=== PATIENT | female | born 1990 | race Caucasian/White ===

== ENCOUNTER 2017-10-08 13:17 | Emergency (ER) | payer MEDICAID ==
[2017-10-08 13:35] VITALS: BP 136/79
--- NOTE | 2017-10-08 13:39 | UC ---
Throat Pain/Nasal Gil HPI - HPI Summary HPI Summary: 26 y/o female presents to the urgent care c/o sore throat since 10/06/2017. pt states symptoms worsen today when she developed nausea and vomiting yesterday. She has 1 episode of vomiting yesterday and 2 today. Pain w/ swallowing is 8/ 10. She has taken Dayquill to alleviate symptoms. She has decrease appetite, but has been drinking fluids. Pt denies fever, cough, SOB, chest pain, abdominal pain, diarrhea. LMP: 1 week ago. - History of Current Complaint Chief Complaint: UCRespiratory Stated Complaint: SORE THROAT Time Seen by Provider: 10/08/17 13:37 Hx Obtained From: Patient Hx Last Menstrual Period: 1 wk ago ?: No Onset/Duration: Gradual Onset, Lasting Days - 2 days, Still Present, Worse Since - yesterday Severity: Moderate Pain Intensity: 8 Pain Scale Used: 0-10 Numeric Cough: None Associated Signs & Symptoms: Positive: Dysphagia - Epiglottits Risk Factors Epiglottis Risk Factors: Negative - Allergies/Home Medications Allergies/Adverse Reactions: Allergies Allergy/AdvReac Type Severity Reaction Status Date / Time No Known Allergies Allergy Verified 10/08/17 13:35 PMH/Surg Hx/FS Hx/Imm Hx Previously Healthy: Yes - Pt denies PMHX Other History Of: Negative For: HIV, Hepatitis B, Hepatitis C - Surgical History Surgical History: None - Family History Known Family History: Positive: Hypertension Negative: Cardiac Disease - Social History Occupation: Employed Full-time Lives: With Family Alcohol Use: Occasionally Substance Use Type: None Smoking Status (MU): Former Smoker Type: Pipe Amount Used/How Often: 5 smokes per day Review of Systems Constitutional: Negative Skin: Negative Eyes: Negative ENT: Sore Throat Respiratory: Negative Cardiovascular: Negative Gastrointestinal: Vomiting, Nausea Genitourinary: Negative Motor: Negative Neurovascular: Negative Musculoskeletal: Negative Neurological: Negative Psychological: Negative Is Patient Immunocompromised?: No All Other Systems Reviewed And Are Negative: Yes Physical Exam - Summary Physical Exam Summary: VITAL SIGNS: Reviewed. GENERAL: Patient is a well developed and nourished female who is sitting comfortable in the examining table. Patient is not in any acute respiratory distress. HEAD AND FACE: No signs of trauma. No ecchymosis, hematomas or skull depressions. No sinus tenderness. EYES: PERRLA, EOMI x 2, No injected conjunctiva, no nystagmus. No photophobia. EARS: Hearing grossly intact. Ear canals and tympanic membranes are within normal limits. MOUTH: Positive pharynx with erythema, exudates, palatal petechiae. B/L tonsillar enlargement with exudate. Uvula in midline. NECK: Supple, trachea is midline, Positive anterior cervical lymphadenopathy, no JVD, no carotid bruit, no c-spine tenderness, neck with full ROM. No meningeal signs, no Kernig's or brudzinskis signs. CHEST: Symmetric, no tenderness at palpation LUNGS: Clear to auscultation bilaterally. No wheezing or crackles. CVS: Regular rate and rhythm, S1 and S2 present, no murmurs or gallops appreciated. ABDOMEN: Soft, non-tender. No signs of distention. No rebound no guarding, and no masses palpated. Bowel sounds are normal. EXTREMITIES: FROM in all major joints, no edema, no cyanosis or clubbing. NEURO: Alert and oriented x 3. No acute neurological deficits. Speech is normal and follows commands. SKIN: Dry and warm Triage Information Reviewed: Yes Vital Signs: Initial Vital Signs Temp 99.0 F 10/08/17 13:32 Pulse 95 10/08/17 13:32 Resp 18 10/08/17 13:32 BP 136/79 10/08/17 13:32 Pulse Ox 99 10/08/17 13:32 Throat Pain/Nasal Course/Dx - Course Course Of Treatment: 26 y/o female presents to the urgent care c/o sore throat since 10/06/2017. pt states symptoms worsen today when she developed nausea and vomiting yesterday. She has 1 episode of vomiting yesterday and 2 today. Pain w / swallowing is 8/10. She has taken Dayquill to alleviate symptoms. She has decrease appetite, but has been drinking fluids. Pt denies fever, cough, SOB, chest pain, abdominal pain, diarrhea. LMP: 1 week ago.Hx obtained. Pt w/ pharyngitis on examination. Pt Given Zofran PO at the clinic to alleviate N/V. Pt tolerated well medication. Rapid strep ordered: result: positive. Strep pharyngitis. Pt Rx Amoxicillin PO and Ibuprofen PO for pain and swelling and Zofran PO for N/V. PT Advised on hand washing to avoid spreading. Also advised to rest, increase fluid intake, eat well and avoid strenuous exercise. If symptoms do not improve or worsen advised to return to the urgent care or f/ u with her PCP for further evaluation and treatment. PT understood and agreed w / D/c instructions. - Differential Dx/Diagnosis Differential Diagnosis/HQI/PQRI: Laryngitis, Mononucleosis, Pharyngitis, Sinusitis, Tonsillitis, URI, Other - nausea and vomiting, gastroenteritis Provider Diagnoses: 1- Strep pharyngitis. 2- Nausea and vomiting Discharge - Sign-Out/Discharge Documenting (check all that apply): Patient Departure - D/C home - Discharge Plan Condition: Stable Disposition: HOME Prescriptions: Amoxicillin PO (*) [Amoxicillin 500 MG CAP*] 500 mg PO Q12H #20 cap Ibuprofen TAB* [Motrin TAB* 800 MG] 800 mg PO Q6H PRN #30 tab PRN Reason: Sore Throat Ondansetron ODT TAB* [Zofran 4 MG Odt TAB*] 4 mg PO Q6H PRN #12 tab.odt PRN Reason: Vomiting Patient Education Materials: Strep Throat (ED) Forms: *Work Release Referrals: [facility] [place] [facility] [Outside] - 3 Days Additional Instructions: 1- Please take the full course of the antibiotic to avoid resistance. 2-Please take ibuprofen PO q6-8hrs prn as instructed after meals to alleviate pain and swelling. Increase fluid intake, eat well, rest and avoid strenuous exercise. 3- Please take Zofran PO as directed to alleviate Nausea and vomiting. Please increase fluid intake, eat soft meals, 4-If symptoms do not improve or worsen please return to the urgent care or f/u with your PCP for further evaluation and treatment. - Billing Disposition and Condition Condition: STABLE Disposition: Home
[2017-10-08] MEDS ORDERED: Ondansetron ODT TAB* 4 MG PO ONE (13:51)
== END 2017-10-08 14:32 | disposition home or self-care (01) ==
LOC: UCEAST 13:17
DX: J02.0 Streptococcal pharyngitis (principal); R11.2 Nausea with vomiting, unspecified; Z87.891 Personal history of nicotine dependence
CPT/HCPCS: 87651; 99212; A9270-GY; G0463

== ENCOUNTER 2018-05-15 14:36 | Emergency (ER) | payer MEDICAID, OTHER ==
[2018-05-15 14:56] VITALS: BP 147/105
--- NOTE | 2018-05-15 15:48 | UC ---
Dental HPI - HPI Summary HPI Summary: 37 y/o female presents to the urgent care c/o L lower tooth pain. States had appt to see dentist but insurance ran out. - History of Current Complaint Chief Complaint: UCDentalProblem Stated Complaint: TOOTH PAIN Time Seen by Provider: 05/15/18 15:29 Hx Obtained From: Patient Hx Last Menstrual Period: 05/08/2017 Onset/Duration: Gradual Onset Pain Intensity: 8 - Allergies/Home Medications Allergies/Adverse Reactions: Allergies Allergy/AdvReac Type Severity Reaction Status Date / Time No Known Allergies Allergy Verified 05/15/18 14:52 PMH/Surg Hx/FS Hx/Imm Hx Other History Of: Negative For: HIV, Hepatitis B, Hepatitis C - Surgical History Surgical History: None - Family History Known Family History: Positive: Hypertension Negative: Cardiac Disease - Social History Alcohol Use: Weekly Substance Use Type: None Smoking Status (MU): Former Smoker Type: Pipe Amount Used/How Often: 5 smokes per day Physical Exam Vital Signs: Initial Vital Signs Temp 99.2 F 05/15/18 14:53 Pulse 80 05/15/18 14:53 Resp 18 05/15/18 14:53 BP 147/105 05/15/18 14:53 Pulse Ox 100 05/15/18 14:53 Dental Complaint Course/Dx - Differential Dx/Diagnosis Differential Diagnosis/Dx: Dental Abscess, Fractured Tooth, Odontogenic Pain, Peridontic Disease, Peritonsillar Abcess, Tonsillitis Provider Diagnosis: Dental abscess, Elevated BP without diagnosis of hypertension Discharge - Sign-Out/Discharge Documenting (check all that apply): Patient Departure - d/c home All imaging exams completed and their final reports reviewed: No Studies - Discharge Plan Condition: Stable Disposition: HOME Prescriptions: Clindamycin Cap(NF) [Clindamycin Cap 300 mg Cap(NF)] 300 mg PO TID #30 cap Ibuprofen TAB* [Motrin TAB* 800 MG] 800 mg PO Q6H PRN #30 tab PRN Reason: Pain Lidocaine 2% VISCOUS* [Xylocaine 2% Viscous*] 15 ml SWISH SPIT Q6H PRN #1 btl PRN Reason: dental pain Patient Education Materials: Dental Abscess (ED), Low-Sodium Diet (ED) Referrals: [facility] [place] [facility] [Outside] - 2 Days Additional Instructions: 1-Please take full course of antibiotic to avoid resistance. 2- Take Ibuprofen PO q6-8hrs as instructed after meals to alleviate pain and swelling. Take also Viscous Lidocaine to alleviate symptoms 3- F/u with your Dentist or Dental List provided as soon as possible for further treatment. 4- If symptoms do not improve or worsen please return to the urgent care or f/u with your PCP in 3 days for further evaluation and treatment 5- Your BP is elevated today. please decrease salt in your diet, monitor BP and if it continues to be elevated please f/u with your PCP for further management. - Billing Disposition and Condition Condition: STABLE Disposition: Home
[2018-05-15] MEDS ORDERED: Lidocaine 2% VISCOUS* 15 ML UDC SWISH SPIT ONE (16:07)
== END 2018-05-15 16:25 | disposition home or self-care (01) ==
LOC: UCEAST 14:36
DX: K04.7 Periapical abscess without sinus (principal); R03.0 Elevated blood-pressure reading, without diagnosis of hypertension; Z87.891 Personal history of nicotine dependence
CPT/HCPCS: 99212; G0463

== ENCOUNTER 2018-06-20 14:02 | Emergency (ER) | payer BC, OTHER ==
[2018-06-20 14:22] VITALS: BP 138/88
--- NOTE | 2018-06-20 15:55 | ED ---
Allergic Reaction/Systemic - HPI Summary HPI Summary: 27 yo WF c/o rash in B/L axilla after a episode of sweating 1 week ago and now very itchy and spreading in upper back and B/L arms, Denies recent h/o new perfumes, detergents, soaps or foods, wore some new bras but stopped wearing them. Alos c/p sore throat x few days, exposed to sick contacts with strep and want to check if she has strep. - History of Current Complaint Chief Complaint: UCRespiratory Time Seen by Provider: 06/20/18 14:44 Hx Obtained From: Patient Hx Last Menstrual Period: 05/2018 Onset/Duration: Sudden Onset, Started days ago Timing: Lasting Days Severity Initially: Moderate Severity Currently: Moderate Pain Intensity: 3 - Allergies/Home Medications Allergies/Adverse Reactions: Allergies Allergy/AdvReac Type Severity Reaction Status Date / Time No Known Allergies Allergy Verified 06/20/18 14:22 Home Medications: Home Medications Dm/PE/Acetaminophen/Doxylamine [Vicks Nyquil Severe Cold-Flu] 1 each PO ONCE PRN 06/20/18 [History Confirmed 06/20/18] PMH/Surg Hx/FS Hx/Imm Hx Previously Healthy: Yes Endocrine/Hematology History: Denies: Hx Diabetes, Hx Thyroid Disease Cardiovascular History: Denies: Hx Congestive Heart Failure, Hx Deep Vein Thrombosis, Hx Hypertension , Hx Myocardial Infarction, Hx Pacemaker/ICD Respiratory History: Denies: Hx Asthma, Hx Chronic Obstructive Pulmonary Disease (COPD), Hx Lung Cancer, Hx Pneumonia, Hx Pulmonary Embolism GI History: Denies: Hx Gall Bladder Disease, Hx Gastrointestinal Bleed, Hx Ulcer, Hx Urosepsis History: Denies: Hx Kidney Stones, Hx Renal Disease Neurological History: Denies: Hx Dementia, Hx Migraine, Hx Seizures, Hx Transient Ischemic Attacks (TIA) Psychiatric History: Denies: Hx Anxiety, Hx Depression, Hx Schizophrenia, Hx Bipolar Disorder Infectious Disease History: No Infectious Disease History: Denies: Traveled Outside the [place] in Last 30 Days - Family History Known Family History: Positive: Hypertension, Diabetes Negative: Cardiac Disease - Social History Alcohol Use: Weekly Substance Use Type: Reports: None Smoking Status (MU): Former Smoker Type: Pipe Amount Used/How Often: 5 smokes per day Review of Systems - ROS Summary Review of Systems Summary: Constitutional: Negative Skin: skin rash Eyes: Negative ENT: sor throat Cardiovascular: Negative Respiratory: Negative Gastrointestinal: Negative Genitourinary: Negative Musculoskeletal: Negative Neurological: Negative Psychological: Normal All Other Systems Reviewed And Are Negative: Yes All Other Systems Reviewed And Are Negative: Yes Physical Exam - Summary Physical Exam Summary: Vital Signs Reviewed: Yes Appearance: Positive: No Pain Distress Skin: Positive: raise erythematous pruritic rash in B/l axilla, smaller and more faint extending into B/L arms and upper back Head/Face: Positive: Normal Head/Face Inspection Eyes: Positive: Normal ENT: Positive: throat erythema w/o exudates Neck: Positive: Supple Respiratory/Lung Sounds: Positive: Clear to Auscultation. Negative: Rales, Rhonchi, Wheezes Cardiovascular: Positive: Normal, RRR, S1, S2 Abdomen Description: Positive: Nontender Musculoskeletal: Positive: Normal Neurological: Positive: Normal, CN Intact II-III Psychiatric: Positive: Normal, Affect/Mood Appropriate Triage Information Reviewed: Yes Vital Signs On Initial Exam: Initial Vitals Temp Pulse Resp BP Pulse Ox 36.9 C 85 18 138/88 100 06/20/18 14:17 06/20/18 14:17 06/20/18 14:17 06/20/18 14:17 06/20/18 14:17 Diagnostics - Vital Signs Vital Signs Temp Pulse Resp BP Pulse Ox 06/20/18 14:17 36.9 C 85 18 138/88 100 - Laboratory Lab Results: Lab Results 06/20/18 Range/Units 14:51 Group A Strep Rapid Negative (Negative) Lab Statement: Any lab studies that have been ordered have been reviewed, and results considered in the medical decision making process. Allergic Reaction Course/Dx - Course Assessment/Plan: rapid strep neg. rash- likely due to periods of hyperhidrosis - Diagnoses Provider Diagnoses: Allergic reaction, Pharyngitis Discharge - Sign-Out/Discharge Documenting (check all that apply): Patient Departure All imaging exams completed and their final reports reviewed: No Studies - Discharge Plan Condition: Stable Disposition: HOME Prescriptions: Betamethasone Deborah 0.1% CM(NF) [Valisone 0.1% CM(NF)] 1 applic TOPICAL BID 7 Days #1 tube methylPREDNISolone TAB* [Medrol TAB*] 4 mg PO DAILY 6 Days #21 tab Patient Education Materials: Acute Rash (ED), Pharyngitis (ED) Additional Instructions: please gargle with salt water and take medication as directed - Billing Disposition and Condition Condition: STABLE Disposition: Home
== END 2018-06-20 16:12 | disposition home or self-care (01) ==
LOC: UCEAST 14:02
DX: J02.9 Acute pharyngitis, unspecified (principal); T78.40XA Allergy, unspecified, initial encounter; Z87.891 Personal history of nicotine dependence; X58.XXXA Exposure to other specified factors, initial encounter
CPT/HCPCS: 87651; 99212; G0463